=== PATIENT | male | born 1935 | race Caucasian/White ===

== ENCOUNTER 2016-12-19 20:21 | Emergency (ER) | payer MEDICARE, MEDICAID ==
[~2016-12-19] VITALS: Ht 172.7 cm; Wt 90.0 kg
[~2016-12-19 20:21] MED LIST: AMLO10TA80 PO; GABA300S PO; METF500T4 PO; TAMS-11 PO; TERB2.5T2 PO; TRAM50TA3 PO
[2016-12-19 20:35] VITALS: BP 130/65
== END 2016-12-19 22:22 | disposition home or self-care (01) ==
LOC: ER 20:46
DX: Z77.098 Contact with and (suspected) exposure to other hazardous, chiefly nonmedicinal, chemicals (principal); I10 Essential (primary) hypertension; F32.9 Major depressive disorder, single episode, unspecified; E78.00 Pure hypercholesterolemia, unspecified; E11.9 Type 2 diabetes mellitus without complications; Z88.0 Allergy status to penicillin
CPT/HCPCS: 99283

== ENCOUNTER 2017-07-15 16:16 | Emergency (ER) | payer MEDICARE, MEDICAID ==
[~2017-07-15] VITALS: Ht 162.6 cm; Wt 94.0 kg
[2017-07-15] MEDS ORDERED: KETOROLAC 60MG/2ML VIAL IM ONE (18:00)
[2017-07-15 19:24] VITALS: BP 145/89
== END 2017-07-15 19:27 | disposition home or self-care (01) ==
LOC: ER 16:16
DX: M25.512 Pain in left shoulder (principal); F41.9 Anxiety disorder, unspecified; I10 Essential (primary) hypertension; E11.9 Type 2 diabetes mellitus without complications; I44.0 Atrioventricular block, first degree; E78.00 Pure hypercholesterolemia, unspecified; Z88.0 Allergy status to penicillin
CPT/HCPCS: 73030; 93005; 96372; 99284; J1885

== ENCOUNTER 2017-09-08 12:10 | Emergency (ER) | payer MEDICARE, MEDICAID ==
[~2017-09-08] VITALS: Ht 167.6 cm; Wt 100.0 kg
[~2017-09-08 12:10] MED LIST changes: -METF500T4 PO; +METF500T6 PO
[2017-09-08 13:25] VITALS: BP 115/73
== END 2017-09-08 14:21 | disposition home or self-care (01) ==
LOC: ER 14:14
DX: H60.92 Unspecified otitis externa, left ear (principal); F41.9 Anxiety disorder, unspecified; E11.9 Type 2 diabetes mellitus without complications; I10 Essential (primary) hypertension; E78.00 Pure hypercholesterolemia, unspecified; Z88.0 Allergy status to penicillin; Z79.899 Other long term (current) drug therapy
CPT/HCPCS: 99283